=== PATIENT | male | born 1985 | race Caucasian/White ===

== ENCOUNTER 2017-12-28 09:21 | Emergency (ER) | payer BC, OTHER ==
[~2017-12-28] VITALS: Ht 185.4 cm; Wt 86.2 kg
--- NOTE | 2017-12-28 11:33 | ED Integumentary General ---
General Chief Complaint: Bite-Animal/Human/Insect Stated Complaint: DOG BITE LEFT ARM Nursing Triage Note: PT STATES HE WAS BIT BY HIS OWN DOG ON THE LT FOREARM, 3 PUNCTURE TEJEDA, ONE HAS BEEN GLUED, ONE NEEDS REPAIR. INCIDENT HAPPENED [id number]. DOG IS UP TO DATE ON SHOTS. History of Present Illness Date Seen by Provider: Dec 28, 2017 Time Seen by Provider: 11:00 Initial Comments The patient is a 32-year-old male who presents to the emergency room with a dog bite to his left forearm. He has puncture wounds to the outer forearm that he put super glue on, there is one puncture wound that is about a centimeter in length that is still open on the inner forearm. The dogs are his mother dogs and her up-to-date on rabies vaccines. Timing/Duration: just prior to arrival Location: extremities Associated Symptoms: denies symptoms Allergies and Home Medications Allergies Coded Allergies: No Known Drug Allergies (Unverified , 12/28/17) Home Medications No Active Prescriptions or Reported Meds Patient Home Medication List Home Medication List Reviewed: Yes Constitutional: see HPI; No chills, No diaphoresis EENTM: see HPI; No hearing loss, No ear pain Respiratory: see HPI; No cough, No dyspnea on exertion Cardiovascular: see HPI; No chest pain, No edema Gastrointestinal: see HPI; No abdominal pain, No constipation Genitourinary: see HPI; No decreased output Musculoskeletal: see HPI, muscle pain Skin: see HPI, other Psychiatric/Neurological: See HPI; Denies Anxiety, Denies Depressed Endocrine: See HPI; Denies Excessive Sweating, Denies Flushing Hematologic/Lymphatic: See HPI; Denies Anemia All Other Systems Reviewed Negative Unless Noted: Yes Past Hmwlrev-Wvpmtd-Oyamkh Hx Past Med/Social Hx: Reviewed Nursing Past Med/Soc Hx Patient Social History Alcohol Use: Denies Use Recreational Drug Use: No Smoking Status: Never a Smoker Recent Foreign Travel: No Contact w/Someone Who Travel: No Recent Infectious Disease Expo: No Recent Hopitalizations: No Seasonal Allergies Seasonal Allergies: No Past Medical History Surgeries: No Respiratory: No Cardiac: No Neurological: No Genitourinary: No Gastrointestinal: No Musculoskeletal: No Endocrine: No HEENT: No Cancer: No Psychosocial: No Integumentary: No Family Medical History Reviewed Nursing Family Hx Physical Exam Vital Signs Vital Signs - First Documented 12/28/17 11:04 Temp 97.0 Pulse 78 Resp 18 B/P (MAP) 121/91 (101) Pulse Ox 100 O2 Delivery Room Air Capillary Refill : Less Than 3 Seconds General Appearance: WD/WN, no apparent distress HEENT: PERRL/EOMI, normal ENT inspection, TMs normal Neck: non-tender, full range of motion, supple Cardiovascular: regular rate, rhythm, no edema, no gallop, no JVD, no murmur Respiratory: chest non-tender, lungs clear, normal breath sounds, no respiratory distress Gastrointestinal: normal bowel sounds, non tender, soft, no organomegaly Back: normal inspection, no CVA tenderness, no vertebral tenderness Extremities: normal range of motion, non-tender, normal inspection, no pedal edema, no calf tenderness, normal capillary refill Neurologic/Psychiatric: alert, normal mood/affect, oriented x 3 Skin: normal color, warm/dry Skin Problem Location: upper extremities ( and left forearm) Skin Problem Character: other (puncture wounds to the outer forearm that have glue intact. 1 puncture wound to the inner forearm that is 1 cm in length.) Lymphatic: no adenopathy Procedures/Interventions Wound Location: Upper Extremities Wound's Depth, Shape: superficial, linear Wound Explored: clean Irrigated w/ Saline (ccs): 200 Other Closure Supply: Steri Strip 1/2", Mastisol Progress The wound was irrigated with normal saline and Betasept Mastisol was applied to the edges of the laceration and Steri-Strip was placed over the top closing the wound loosely to facilitate drainage. Progress/Results/Core Measures Results/Orders Vital Signs/I&O 12/28/17 12/28/17 11:04 11:44 Temp 97.0 97.0 Pulse 78 78 Resp 18 18 B/P (MAP) 121/91 (101) 121/91 (101) Pulse Ox 100 100 O2 Delivery Room Air Room Air Blood Pressure Mean: 101 FSBG Bedside Testing Finger Stick Blood Glucose: 138 Progress Progress Note : Progress Note The patient was sent home with a prescription for Augmentin. He is in the traveling but was informed to return to the nearest emergency room or medical facility if signs of infection should develop. Departure Impression Primary Impression: Dog bite Qualified Codes: W54.0XXA - Bitten by dog, initial encounter Disposition: 01 HOME, SELF-CARE Condition: Stable/Unchanged Departure-Patient Inst. Decision time for Depature: 11:28 Referrals: NO,LOCAL PHYSICIAN (PCP) Primary Care Physician Patient Instructions: Animal Bites (DC) Add. Discharge Instructions: Take medications as directed. Leave the Steri-Strips on until they fall off on their own. Watch for signs of infection such as increased pain, swelling, drainage, red streaks going up the arm, return back to the emergency room or your physician for further treatment. Return back to the emergency room for any concerns as needed. All discharge instructions reviewed with patient and/or family. Voiced understanding. Scripts No Active Prescriptions or Reported Meds CORNELIA HALEY Dec 28, 2017 11:33
[2017-12-28 11:44] VITALS: BP 121/91
== END 2017-12-28 11:43 | disposition home or self-care (01) ==
LOC: EDUNIT# 09:21 → ER 09:24
DX: S51.852A Open bite of left forearm, initial encounter (principal); W54.0XXA Bitten by dog, initial encounter